=== PATIENT | male | born 1995 | race Two or more races ===

== ENCOUNTER 2024-06-07 00:33 | Emergency (ER) | payer MEDICARE, SELFPAY ==
[~2024-06-07] VITALS: Ht 177.8 cm; Wt 87.7 kg
[2024-06-07] MEDS: BACITRACIN OINTMENT 30GM TUBE TOP STA (08:21)
[2024-06-07] MEDS: ACETAMINOPHEN TAB 650MG DOSE (2X325MG) PO ONE (08:22)
[2024-06-07 08:33] VITALS: BP 119/61; TEMP 97; O2SAT 96
== END 2024-06-07 08:51 | disposition home or self-care (01) ==
LOC: M ED 00:33
DX: S90.812A Abrasion, left foot, initial encounter (principal); X58.XXXA Exposure to other specified factors, initial encounter; Z59.00 Homelessness unspecified